=== PATIENT | female | born 1995 | race Caucasian/White ===

== ENCOUNTER 2020-04-30 15:18 | Outpatient (RCR) | payer OTHER, SELFPAY ==
[2020-04-30 16:19] VITALS: BP 101/56; PULSE 75
== END 2020-07-29 23:59 | disposition home or self-care (01) ==
LOC: ANHOBOP 15:18
PROVIDERS: PCP Physician Assistant; Visit Provider Obstetrics & Gynecology
DX: O36.8120 Decreased fetal movements, second trimester, not applicable or unspecified (principal); Z3A.23 23 weeks gestation of pregnancy
CPT/HCPCS: 59025

== ENCOUNTER 2020-08-26 15:51 | Inpatient (IN) | payer OTHER, SELFPAY ==
[2020-08-26] VITALS (7 sets, daily range): BP systolic 94–116; BP diastolic 52–71; PULSE 63–93; TEMP 36.7; BMI 26.6
--- NOTE | 2020-08-26 16:12 | LDADM ---
This patient, Marisela Whitt, was admitted to Labor/Delivery/Recovery 108 on 08/26/20 at 15:51. Plans for labor, pain management and were discussed with patient. Patient/family oriented to hospital policies and general routines including ID bracelet, bed and alarms, visiting hours, pain management, procedures, bathroom and other care routines, personal items, smoking policy, room service/diet and guest tray routines, security routines, and visiting hours. Patient/Family are encouraged to report perceived risks to care and to ask questions if they do not understand what they are told or what they should do. See OBIX for further documentation.
[2020-08-26 16:34] LABS: Basophils Absolute Auto 0.1 K/mm3 (0.0-0.1); Basophils Percent Auto 0.6 % (0.2-1.2); Eosinophils Absolute Auto 0.1 K/mm3 (0-0.3); Eosinophils Percent Auto 0.7 % (0-4.4); Hemoglobin 13.6 g/dL (12.0-15.0); Immature Granulocyte Absolute 0.15 K/mm3 (0.00-0.031); Immature Granulocyte Percent A 1.4 % (0-0.5); Lymphocytes Absolute Auto 1.79 K/mm3 (0.9-3.2); Lymphocytes Percent Auto 16.4 % (18.3-44.2); Mean Corpuscular HGB Conc 32.4 g/dl (32-36); Mean Corpuscular Hemoglobin 28.7 pg (26-34); Mean Corpuscular Volume 88.6 fl (80-100); Mean Platelet Volume 10.3 fl (7.4-10.4); Monocytes Absolute Auto 0.7 K/mm3 (0.1-0.6); Monocytes Percent Auto 6.6 % (2.6-8.5); Neutrophils Absolute Auto 8.1 K/mm3 (1.3-6.7); Neutrophils Percent Auto 74.3 % (45.5-73.1); Platelet Count Result 232 k/mm3 (150-375); Red Blood Count 4.74 M/mm3 (4.2-5.4); Red Cell Distribution Width 13.8 % (11.5-14.5); White Blood Count 10.9 K/mm3 (4.5-10.0)
[2020-08-26] MEDS: DINOPROSTONE 10 MG VAG INSERT VAGINAL (16:39)
[2020-08-27] VITALS (114 sets, daily range): BP systolic 90–128; BP diastolic 46–90; PULSE 54–155; RESP 18; TEMP 36–37.2; O2SAT 96–100
[2020-08-27] MEDS: OXYTOCIN 30 UNITS/NS 500 ML 30 UNITS/500 ML BAG 6 UNITS IV CONT (05:10)
[2020-08-27] MEDS: LACTATED RINGERS 1,000 ML 125 ML IV CONT ×2 (05:11→09:31)
--- NOTE | 2020-08-27 06:56 | PM.IMHP ---
H&P: HPI History of Present Illness Date/Time: 08/27/20 06:56 Marisela is a 25yo @ 39.6wks (JOSS 08/28/20) who presented for induction of labor. She has had regular care with Phil LORENZ. She was admitted overnight for cervidil induction. She reports good movement. No VB or LOF. Her is complicated by: - Hypothyroidism on levothyroxine 88mcg - CMV non-immune Chief Complaint: induction of labor Review of Systems Review of Systems: All systems reviewed & are unremarkable except as noted in HPI and below (HPI) [facility] Family History Family History Mother Hypothyroidism Sibling Hypothyroidism Father Factor V Leiden Social History Social History Smoking status: Never smoker Substance use: never Gender identity (if verbalized by the patient): Female Spiritual care concerns: No Meds Home Medications and Allergies Home Medications Medication Instructions Recorded Confirmed Type PNV cmb#95-ferrous fumarate-FA 1 tablet PO DAILY 07/27/20 08/26/20 History [] levothyroxine 88 mcg PO DAILY 07/27/20 08/26/20 History magnesium oxide 400 mg PO DAILY 07/27/20 08/26/20 History riboflavin (vitamin B2) 400 mg PO DAILY 07/27/20 08/26/20 History Allergies Allergy/AdvReac Type Severity Reaction Status Date / Time Penicillins AdvReac Intermediate Nausea Verified 07/27/20 15:20 Vital Signs Vital Signs - 24 hr 08/26/20 16:14 08/26/20 16:30 08/26/20 17:00 Temperature 36.7 C Pulse Rate 85 93 70 Blood Pressure 116/71 94/66 L 102/68 08/26/20 17:29 08/26/20 17:59 08/26/20 18:29 Temperature Pulse Rate 69 70 63 Blood Pressure 103/70 94/52 L 106/68 08/26/20 22:29 08/27/20 03:03 08/27/20 03:10 Temperature 36.0 C L Pulse Rate 69 58 L Blood Pressure 102/67 107/73 08/27/20 03:15 08/27/20 03:30 08/27/20 03:45 Temperature Pulse Rate 65 72 64 Blood Pressure 98/67 L 94/63 L 101/60 08/27/20 04:00 08/27/20 04:15 08/27/20 04:30 Temperature Pulse Rate 57 L 60 58 L Blood Pressure 104/65 90/51 L 108/72 08/27/20 05:16 08/27/20 05:30 08/27/20 06:00 Temperature Pulse Rate 71 68 69 Blood Pressure 113/75 106/65 101/55 L 08/27/20 06:30 Temperature Pulse Rate 63 Blood Pressure 97/49 L Exam Const: General: cooperative, healthy appearing, comfortable and no acute distress Resp: Effort & Inspection: normal respiratory effort and able to speak in complete sentences Cardio: Rate: regular rate GI: GI Palp: No abdominal tenderness and Yes Soft to palpation : Other: FHT's: 130's/ mod makenzie/ + accels/ no decels - cat 1 TOCO: ctx 1-4min Membranes: intact Cervix: 2/75/-2 after cervidil Skin: General skin exam: normal color Neuro: General: patient oriented x3 Extrem: General: normal to inspection Psych: Appearance: grossly normal Affect: normal affect Attitude: cooperative H&P: Results Labs Labs: Short CBC 08/26/20 Range/Units 16:09 WBC 10.9 H (4.5-10.0) K/mm3 Hgb 13.6 (12.0-15.0) g/dL Hct 42.0 (37.0-47.0) % Plt Count 232 (150-375) k/mm3 Assessment and Plan Assessment and plan (1) : Qualifiers: Weeks of gestation: 39 weeks Qualified Code(s): Z3A.39 - 39 weeks gestation of Code(s): Z34.90 - Encounter for supervision of normal , unspecified, unspecified trimester Status: Acute (2) Hypothyroidism affecting : Qualifiers: Trimester: third trimester Qualified Code(s): O99.283 - Endocrine, nutritional and metabolic diseases complicating , third trimester; E03.9 - Hypothyroidism, unspecified Code(s): O99.280 - Endocrine, nutritional and metabolic diseases complicating , unspecified trimester; E03.9 - Hypothyroidism, unspecified Status: Acute Additional Plan - Admitted overnight for cervidil
--- NOTE | 2020-08-27 07:06 | WPDHPUPDATE1 ---
History and Physical Update Update Date/Time: 08/27/20 07:06 History and Physical has been reviewed, including an updated exam of the patient. There are NO changes in the patient's condition. Risks, benefits, and alternatives have been discussed and questions answered. Patient agrees to proceed with procedure.
--- NOTE | 2020-08-27 08:50 | PM.OBPNLAB ---
Pain Control Date/time seen: 08/27/20 08:50 Pain control: tolerating well Pelvic Exam Dilation (cm): 2 (.5) Effacement (%): 75 station: -1 Amniotic membrane status: Ruptured (clear; AROM 0845) Contractions Monitor mode: External Contraction frequency: 3 Contraction pattern: Regular Contraction intensity: Moderate Status status: Category l Comments: 130's/ mod makenzie/ + accels/ no decels - cat 1 Assessment and Plan Pitocin rate (mU/min): 6 Assessment: induction ongoing Plan: continuous present management Comments: - anesthesia consult PRN pain
--- NOTE | 2020-08-27 08:52 | P.PNAN_ITS ---
Anes - Eval Pre Procedure Procedure: labor epidural Date/Time: 08/27/20 08:52 Surgeon: angela Pre Op Diagnosis: Induction of Labor Patient Data Age: 25 Gender: F Height: 1.68 m Weight: 75 kg Last Vital Signs Temp 36.2 C L 08/27/20 07:30 Pulse 73 08/27/20 08:50 BP 111/68 08/27/20 08:50 Allergies Allergy/AdvReac Type Severity Reaction Status Date / Time Penicillins AdvReac Intermediate Nausea Verified 07/27/20 15:20 Home Medications Medication Instructions Recorded Confirmed Type PNV cmb#95-ferrous fumarate-FA 1 tablet PO DAILY 07/27/20 08/26/20 History [] levothyroxine 88 mcg PO DAILY 07/27/20 08/26/20 History magnesium oxide 400 mg PO DAILY 07/27/20 08/26/20 History riboflavin (vitamin B2) 400 mg PO DAILY 07/27/20 08/26/20 History Laboratory Tests 08/26/20 08/26/20 08/26/20 16:09 16:09 16:09 WBC 10.9 K/mm3 H K/mm3 (4.5-10.0) RBC 4.74 M/mm3 M/mm3 (4.2-5.4) Hgb 13.6 g/dL g/dL (12.0-15.0) Hct 42.0 % % (37.0-47.0) MCV 88.6 fl fl (80-100) MCH 28.7 pg pg (26-34) MCHC 32.4 g/dl g/dl (32-36) RDW 13.8 % % (11.5-14.5) Plt Count 232 k/mm3 k/mm3 (150-375) MPV 10.3 fl fl (7.4-10.4) Immature Gran % (Auto) 1.4 % H % (0-0.5) Neut % (Auto) 74.3 % H % (45.5-73.1) Lymph % (Auto) 16.4 % L % (18.3-44.2) [place] % (Auto) 6.6 % % (2.6-8.5) Eos % (Auto) 0.7 % % (0-4.4) Baso % (Auto) 0.6 % % (0.2-1.2) Lymph # (Auto) 1.79 K/mm3 K/mm3 (0.9-3.2) [place] # (Auto) 0.7 K/mm3 H K/mm3 (0.1-0.6) Eos # (Auto) 0.1 K/mm3 K/mm3 (0-0.3) Baso # (Auto) 0.1 K/mm3 K/mm3 (0.0-0.1) Abs Immat Gran (auto) 0.15 K/mm3 H K/mm3 (0.00-0.031) Absolute Neuts (auto) 8.1 K/mm3 H K/mm3 (1.3-6.7) Absolute Nucleated RBC 0.0 K/mm3 K/mm3 (0.0-0.012) Nucleated RBC % 0.0 % % (0.0-0.2) RPR Pending Blood Type O Positive Antibody Screen Negative Patient hx anesthesia problems: none Family hx anesthesia problems: none [facility] Family History Family History Mother Hypothyroidism Sibling Hypothyroidism Father Factor V Leiden Social History Social History Smoking status: Never smoker Substance use: never Gender identity (if verbalized by the patient): Female Spiritual care concerns: No Exam Day of Procedure 08/27/20 08:52
[2020-08-27] MEDS: LEVOTHYROXINE SODIUM 88 MCG TABLET PO (09:31)
[2020-08-27 10:34] LABS: Rapid Plasma Reagin Non-Reactive (NonReactive)
[2020-08-27] MEDS: ONDANSETRON INJ 4 MG/2 ML VIAL IV PUSH (13:18)
--- NOTE | 2020-08-27 16:44 | P.PCNOB_ITS ---
OB - Delivery Note Procedure Delivery date: 08/27/20 events: Labor Induction Intrapartal events: Deceleration Induction method: per cervidil protocol Delivery augmentation: rupture of membranes and pitocin Delivery monitor: external FHT and internal uterine Route of delivery: Laceration Description: Perineal - 1st Degree Delivery repair: vicryl Quantitative Blood Loss (ml): 100 Anesthesia type: Epidural Disposition: floor [place] Baby Date of : 08/27/20 Time of : 16:25 Weeks of gestation at delivery: 39 gender: Female Weight (pounds): 7 Weight (ounces): 2 presentation: vertex position: Left Occiput Anterior Placenta delivery description: Expressed cord vessel description: 3 Vessels score one minute: 8 score five minutes: 9 Narrative: Marisela rapidly progressed from 5 cm to complete dilation. She was found to have severe, recurrent variables. With good maternal effort she began pushing, heart rate tracing was overall reassuring, but breaks were given to allow for heart beat to return to baseline. She pushed for approximately 2 hours and delivered the head over intact perineum. She easily delivered the shoulders and body without complication. The infant was then immediately placed skin to skin. Delayed cord clamping was performed. The umbilical cord was then clamped and cut. A segment of the cord was collected for cord gases. The remaining cord blood was sent for typing. With Pitocin running and gentle downward traction on the umbilical cord, the placenta delivered without complications. Bimanual massage was performed and good uterine tone with minimal bleeding was noted. The cervix, vagina, perineum were examined and a first- degree perineal laceration was noted. The laceration was repaired using 2 0 Vicryl in normal fashion. Good hemostasis was noted. Sponge, lap, instrument, needle counts were correct at the end the procedure. Mom and baby were left bonding in a stable condition.
[2020-08-27] MEDS: OXYTOCIN 30 UNITS/NS 500 ML 30 UNITS/500 ML BAG 125 UNITS IV CONT (17:00)
[2020-08-27] MEDS: IBUPROFEN 600 MG TABLET PO (19:22)
[2020-08-27] MEDS: BENZOCAINE 20% AER SPR (*SP) 56 GM CAN 1 SPRAY TOPICAL (19:23)
[2020-08-27] MEDS: WITCH HAZEL 40 PADS 1 PAD TOPICAL (19:23)
--- NOTE | 2020-08-27 20:19 | OBPPTRN ---
Patient transferred to post room #279 via wheelchair. Support person present. Oriented to unit, room, information board, rooming in, admission packet and security measures. Patient verbalizes understanding.
[2020-08-28] MEDS: IBUPROFEN 600 MG TABLET PO ×2 (02:43→14:02)
[2020-08-28 04:00] VITALS: BP 113/69; PULSE 79; RESP 20; TEMP 36.6; O2SAT 99
[2020-08-28 05:30] LABS: Hematocrit 35.5 % (37.0-47.0); Hemoglobin 11.8 g/dL (12.0-15.0)
[2020-08-28] MEDS: DOCUSATE SODIUM 100 MG CAPSULE PO (06:47)
[2020-08-28] MEDS: LEVOTHYROXINE SODIUM 88 MCG TABLET PO (06:47)
[2020-08-28] MEDS: MULTIVIT/MIN/PREN/FOL AC/IRON TABLET 1 TAB PO (06:47)
[2020-08-28 07:00] VITALS: BP 106/69; PULSE 77; RESP 20; TEMP 36.7
--- NOTE | 2020-08-28 07:44 | WPDANLDPN2 ---
Anes-Prog Note L&D Date/Time: 08/28/20 07:44 Comfortable throughout: labor and delivery Neuraxial method: epidural Epidural/Spinal procedure site: clean & non-tender Neuro status: Neuro function grossly intact. Cardiovascular status: normal Respiratory status: normal Airway patency: baseline Mental status: baseline Post-Op hydration status: normal Vital Signs: Last Vital Signs Temp 36.7 C 08/28/20 07:00 Pulse 77 08/28/20 07:00 Resp 20 08/28/20 07:00 BP 106/69 08/28/20 07:00 Pulse Ox 99 08/28/20 04:00 Pain score (VAS): 0 I/O: Intake & Output 08/27/20 08/27/20 08/28/20 15:59 23:59 07:59 Intake Total 1000 2400 Output Total 63 Balance 1000 2400 -63 Post-procedural complaints: none Patient feedback: Patient satisfied with anesthetic care.
--- NOTE | 2020-08-28 10:10 | PC.NURSE ---
Mother called out for assist with feeding, reporting has been using a nipple shield for all feedings due to flat nipples. Mother reports discomfort with latch and entire feeding. Reviewed application and cleaning of shield. Discussed nipple shield precautions and possible complications. Patient able to return demonstration on proper application of shield. Discussed the need to initiate pumping if continues to nurse with the shield. Patient verbalizes understanding. Reviewed feeding cues, frequencies, duration of feedings, feeding elimination flow sheet, and signs of adequate intake. Demonstrated stimulation techniques to wake infant for feeding. Assisted with infant to breast without shield first. Demonstrated how to roll out nipples, areolas are firm and nipples do not roll out. Reviewed positioning/alignment in cross cradle, holding breast in U hold and guided asymmetrical latch on. Infant made eager attempts and is not able to draw nipple in. With shield in place infant was able to latch correctly. nursed eagerly, with steady draws and occasional swallowing for bursts followed with long pausing. Mother independently stimulated to wake infant and encourage to suck working to keep deep latch. Reviewed signs of a correct latch, effective nursing and suck swallow ratio. Infant was able to maintain latch without discomfort to mother. Nipple care reviewed. Advised to continue to stimulate to keep awake and nursing effectively for increased stimulation, increased intake and to assist with maintaining deep latch. Mother reports this latch is more comfortable than previous. Instructed mother to call out for RN assistance if she is unable to latch for feeding or she has discomfort with nursing. Instructed feeding should be initiated three hours from start of last feeding or if feeding cues are noted before. Mother voiced understanding of information shared.
--- NOTE | 2020-08-28 10:45 | PC.NURSE ---
Breast pump provided due to ineffective feeding/nipple shield use. Instructions given on breast pump care and usage, pumping schedule, nipple care, and collection and storage of breast milk. Encouraged [id number], breast massage and manual expression to stimulate supply. Assessed patient for correct flange size, placement and draw. Patient verbalizes and demonstrates understanding of instructions.
[2020-08-28 11:15] VITALS: BP 102/71; PULSE 73; RESP 16; TEMP 36.4
--- NOTE | 2020-08-28 13:05 | PM.OBPNVD ---
OB - PN: Subj Subjective Date/time seen: 08/28/20 13:05 PPD#1 Marisela reports doing great. She has minimal pain; taking meds PRN. She reports her bleeding is much ligher. She has tolerated regular diet w/o issue. Voided and passed gas. She has ambulated w/o symptoms of anemia. She is breast feeding. she would like to go home today. She denies CP, SOB, N/V, fever, chills, PARTIDA, vision changes, dizziness or palpitations. OB - PN: Obj Data Labs CBC & Chem 7: 08/28/20 04:46 Labs: Laboratory Results - last 24 hr 08/28/20 04:46 Hgb 11.8 L Hct 35.5 L OB - PN A/P Assessment and Plan (1) Normal vaginal delivery of first : Code(s): O80 - Encounter for full-term uncomplicated delivery Status: Acute Plan day: 1 Plan: routine care and discharge home Comments: - f/u in 2wks - ER return precautions: fever, bleeding, htn, n/v/abd pain - Pelivc rest, take meds as prescribed Time Spent With Patient Time: Total time spent is greater than 50% in coordination of care (as documented) at patient's floor/unit and/or counseling patient: Review of Systems Review of Systems: All systems reviewed & are unremarkable except as noted in HPI and below (HPI) Exam Const: General: cooperative, healthy appearing, comfortable and no acute distress Resp: Effort & Inspection: normal respiratory effort and able to speak in complete sentences Auscultation: clear to auscultation bilaterally Cardio: Rate: regular rate GI: Inspection: normal to inspection and non-distended GI Palp: No abdominal tenderness and Yes Soft to palpation Auscultation: normal bowel sounds : Other: fundus firm below umbilicus Skin: General skin exam: normal color Neuro: General: patient oriented x3 Extrem: General: normal to inspection Psych: Appearance: grossly normal Affect: normal affect Attitude: cooperative
--- NOTE | 2020-08-28 13:45 | PC.NURSE ---
1310 Mother called out for assist with feeding. Parents state they wish to be discharged at 24 hours. Discussed feeding status and reviewed infant feeding status and signs of adequate intake. Discussed is a sleepy at breast and not feeding effectively and consistently while at breast, infant has good bursts of effective rhythmic draws intermittently with short chewy type suckling. Reviewed signs that may require supplementation if, less than required output, not feeding by 4 hours form last feeding, dark urine and not effectively feeding for at least 10-15 minutes each feeding. Parents voice understanding to information shared. Assisted with to breast using the nipple shield. Mother is able to independently latch using the cross cradle holding breast and guided asymmetrical latch. Infant will latch correctly with bursts of effective sucking followed with pausing and releasing latch. Mother will reports is nursing: discussed the difference of effective vs ineffective nursing. Reviewed flutter sucking and effective draws. Suggested mother switch to football positioning. Infant was able to latch deeply and nurse more consistently in this position, mother appears more comfortable as well denying discomfort. Mother is able to independently latch infant with appropriate positioning/alignment. She is feeding as required and waking to feed if needed. has had at least 8 feedings in the past 24 hours, and is currently meeting outcomes for weight, output, jaundice and feeding frequencies. Mother states she feels confident to continue at home following supplementation if needed. Reviewed transition to breast milk, signs of adequate intake, and engorgement/relief. Instructed to call ICP if intake/output less than required. Reviewed regular medications mother is taking. Information provided per Kiana. Reviewed community resources on the [facility] website and in the Mom/Baby guide. Information on outpatient services provided. Mother has no further questions at this time.
--- NOTE | 2020-08-28 16:30 | PC.NURSE ---
Patient viewed the discharge video Mother & Baby Care, The First Two Weeks . Patient was given the opportunity and encouraged to ask questions. Patient verbalized understanding of information shared and has been given the mother/baby guide for home reference.
[2020-08-28 16:40] VITALS: BP 119/70; PULSE 78; RESP 18; TEMP 36.3
[2020-08-29 09:08] VITALS: BP 103/68; PULSE 74; RESP 20; TEMP 36.8; O2SAT 100
--- NOTE | 2020-09-01 17:38 | PM.OBDSVD ---
DS: Admitting Diagnosis Admitting Diagnosis Admitting Diagnosis: induction of llabor DS: Discharge Diagnosis Discharge Diagnosis (1) Normal vaginal delivery of first : Code(s): O80 - Encounter for full-term uncomplicated delivery Status: Acute (2) Hypothyroidism affecting : Qualifiers: Trimester: third trimester Qualified Code(s): O99.283 - Endocrine, nutritional and metabolic diseases complicating , third trimester; E03.9 - Hypothyroidism, unspecified Code(s): O99.280 - Endocrine, nutritional and metabolic diseases complicating , unspecified trimester; E03.9 - Hypothyroidism, unspecified Status: Acute OB - DS: Summary OB Procedures : Ultrasound OB Procedures Intrapartum: Spontaneous Vag Delivery OB Procedures: : None Peripartum Data Infant Delivery Method: Natural Vaginal Laceration Description: Perineal - 1st Degree complications: none [place] 1: Gender: Female Disposition of : home Status at Discharge Functional status at discharge: independent ambulation Overall status at discharge: patient is back to baseline Time Spent with Patient Time attestation: Total time spent providing and/or coordinating discharge services: Exam Const: General: cooperative, healthy appearing, comfortable and no acute distress Resp: Effort & Inspection: normal respiratory effort and able to speak in complete sentences Auscultation: clear to auscultation bilaterally Cardio: Rate: regular rate GI: Inspection: normal to inspection and non-distended GI Palp: No abdominal tenderness and Yes Soft to palpation Auscultation: normal bowel sounds : Other: fundus firm Skin: General skin exam: normal color Neuro: General: patient oriented x3 Extrem: General: normal to inspection Psych: Appearance: grossly normal Affect: normal affect Attitude: cooperative Discharge Plan Discharge Attending physician on discharge: Padmini Amado Discharging Clinician: Padmini Amado Anticipated Discharge Date/Time: 08/28/20 18:00 Patient Disposition: Home, Self-Care Activity: may shower and pelvic rest Diet: as tolerated and regular Discharge Instructions: Education: Mom and Baby Guide and Preeclampsia Handout Given to: Mother Follow-Up: Call your delivering provider's office for an appointment to be seen in: 4 Weeks Mom and baby should come to [facility] for the follow-up appointment. Appointment Date/Time: August 29, 2020 at 8:00 am What to expect at your follow-up visit: Physical Assessment Call [phone] if you are unable to keep your appointment time. BREAST CARE: * Wear a snug supportive bra. * For engorgement discomfort: Breast Feeding: * Apply warm moist washcloths * Express milk as needed to relieve engorgement * Wear loose clothing * For sore nipples: * Identify correct latch-on * Apply warm moist washcloths before and after nursing * Air dry nipples after nursing * May apply Lansinoh cream to nipples EPISIOTOMY/PERINEAL CARE: * Until bleeding stops, use your inga bottle after urinating * Change your pad frequently throughout the day * You may take sitz baths several times a day (fill your bathtub with warm water and soak for 20 minutes.) Do NOT bathe in the water * No tub baths until seen by your physician - You may shower ACTIVITY: * Rest as much as possible. * Do not exercise or lift anything heavier than your baby (such as laundry or other children.) * Avoid stairs or driving as much as possible. * Do not put anything into the vagina. No douching, tampons, or sexual activity until seen by physician. NOTIFY PHYSICIAN IF YOU HAVE ANY QUESTIONS OR IF ANY OF THE FOLLOWING SYMPTOMS OCCUR: * If your episiotomy or incision becomes red, swollen, or more painful than what you have experi
== END 2020-08-28 17:47 | disposition home or self-care (01) | DRG 807 ==
LOC: ANHLDR 15:59 → ANHOB2 08-27 19:36
PROVIDERS: Admitting Provider Obstetrics & Gynecology; PCP Physician Assistant; Visit Provider Obstetrics & Gynecology
DX: O99.284 Endocrine, nutritional and metabolic diseases complicating childbirth (principal); Z37.0 Single live birth; O70.0 First degree perineal laceration during delivery; O76 Abnormality in fetal heart rate and rhythm complicating labor and delivery; Z3A.39 39 weeks gestation of pregnancy; E03.9 Hypothyroidism, unspecified
CPT/HCPCS: 36415; 85014; 85018; 85025; 86592; 86850; 86900; 86901; A9270; J2405; J2590; J2795; J7120